=== PATIENT | female | born 1970 | race Caucasian/White ===

== ENCOUNTER 2025-09-15 15:19 | Emergency (ER) | payer OTHER, MEDICAID ==
[~2025-09-15] VITALS: Ht 157.5 cm; Wt 119.0 kg
[2025-09-15 15:24] VITALS: O2SAT 98
[2025-09-15] MEDS: ACETAMINOPHEN 325MG TABLET PO ONE (20:42)
[2025-09-15] MEDS: ONDANSETRON 4MG ODT PO ONE (20:42)
[2025-09-15 21:47] VITALS: BP 143/85; PULSE 76; RESP 18; TEMP 36.9; O2SAT 99
== END 2025-09-15 21:47 | disposition home or self-care (01) ==
LOC: ER 15:19
DX: T18.8XXA Foreign body in other parts of alimentary tract, initial encounter (principal); E11.9 Type 2 diabetes mellitus without complications; W44.H9XA Other sharp object entering into or through a natural orifice, initial encounter; Y93.89 Activity, other specified; Y92.89 Other specified places as the place of occurrence of the external cause; Y99.8 Other external cause status
CPT/HCPCS: 99283; 81025; Q0162